=== PATIENT | male | born 1950 | race Caucasian/White ===

== ENCOUNTER 2022-11-15 11:36 | Outpatient (CLI) | payer MEDICARE, MEDICAID, SELFPAY ==
--- NOTE | ~2022-11-15 | MR_ITS ---
MRI of the brain Clinical History: Gait abnormality Technique: Axial and sagittal T1-weighted images were acquired. These were followed by axial T2-weigh ismael, diffusion weighted, gradient, and FLAIR images. Findings: There is no acute infarct, intracranial hemorrhage, or mass lesion. 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 There are mild to moderate chronic microvascular ischemic ocampo es in the periventricular white matter bilaterally. Ventricles and subarachnoid spaces are unremarkable. Orbits are unremarkable. Paranasal sinuses and m astoid air cells are clear. Major intracranial flow voids are intact. Sagittal midline structures are intact. IMPRESSION: No acute abnormality seen. 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 Mild to moderate chronic microvascular ischemic changes. Reviewed, dictated and finalized at location M.
--- NOTE | ~2022-11-15 | MR_ITS ---
MRI of the lumbar spine Clinical History: Gait abnormality Technique: Axial T2-weighted images, and sagittal T1-weighted, T2-weighted, and T2 fat-sat images wer e acquired. Findings: There is no acute fracture of the lumbar spine. There is mild chronic compression deformity of L1. There is minimal grade 1 retrolisthesis of L1 over L2. There is 5 mm retrolisthesis of L2 ove r L3. There is a 5 mm retrolisthesis of L3 over L4. There is 3 mm anterolisthesis of L4 over L5. Ther e is advanced degenerative disc narrowing throughout the lumbar spine. No suspicious bone marrow sign al reality seen. At L1-L2, there is disc bulge and moderate facet arthropathy. No fausto central canal stenosis. There is mild bilateral neural foraminal narrowing. At L2-L3, there is disc bulge and moderate facet arthropathy. No fausto central canal stenosis. There is severe left neural foraminal narrowing, and moderate to severe right neural foraminal narrowing. At L3-L4, there is diffuse disc bulge and severe facet arthropathy. There is moderate central canal s tenosis. There is severe bilateral neural foraminal narrowing, left worse than right. At L4-L5, there is disc bulge and severe facet arthropathy. There is mild to moderate central canal s tenosis. There is severe left neural foraminal narrowing, and moderate to severe right neural foramin al narrowing. At L5-S1, there is no disc bulge or herniation. There is moderate to advanced facet arthropathy. No c entral canal stenosis. Probable mild right neural foraminal narrowing. Paravertebral soft tissues are unremarkable. Impression: Severe degenerative spondylosis, as detailed above. 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 Mild chronic compression deformity of L1. Reviewed, dictated and finalized at location . Impression: Severe degenerative spondylosis, as detailed above. 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 Mild chronic compression deformity of L1.
== END 2022-11-15 11:37 | disposition home or self-care (01) ==
PROVIDERS: PCP Internal Medicine; Visit Provider Student in an Organized Health Care Education/Training Program
DX: R26.89 Other abnormalities of gait and mobility (principal); M47.896 Other spondylosis, lumbar region
CPT/HCPCS: 70551; 72148

== ENCOUNTER 2023-01-22 12:43 | Outpatient (CLI) | payer MEDICARE, MEDICAID, SELFPAY ==
--- NOTE | 2023-01-22 14:45 | NEURO_ITS ---
Impression: # Non-diabetic with severely swollen legs and gait dysfunction. # No motor or sensory responses could be obtained from lower extremities. # Needle/EMG exam with decreased motor unit potentials but no fibs or myotonia. # Clinical correlation recommended. Nerve Conduction Studies Anti Sensory Summary Table Stim Site NR Peak (ms) P-T Amp (?V) Site1 Site2 Delta-P (ms) Dist (cm) Srinivasan (m/s) Left Sup Fibular Anti Sensory (Ant Lat Mall) NO RESPONSE 14 cm NR 14 cm Ant Lat Mall 16.0 Right Sup Fibular Anti Sensory (Ant Lat Mall) NO RESPONSE 14 cm NR 14 cm Ant Lat Mall 16.0 Left Sural Anti Sensory (Lat Mall) NO RESPONSE Calf NR Calf Lat Mall 16.0 Right Sural Anti Sensory (Lat Mall) NO RESPONSE Calf NR Calf Lat Mall 16.0 Motor Summary Table Stim Site NR Onset (ms) O-P Amp (mV) Site1 Site2 Delta-0 (ms) Dist (cm) Srinivasan (m/s) Left Peroneal Motor (Vastus Med) NO RESPONSE Ankle NR Popit NR Right Peroneal Motor (Vastus Med) NO RESPONSE Ankle NR Popit Ankle 0.0 Popit NR Left Tibial Motor (Abd Gomez Brev) NO RESPONSE Ankle NR Knee Ankle 0.0 Knee NR Right Tibial Motor (Abd Gomez Brev) NO RESPONSE Ankle NR Knee Ankle 0.0 Knee NR F Wave Studies NR F-Lat (ms) L-R F-Lat (ms) Left Peroneal (Mrkrs) (EDB) DISPERSED RESPONSE NR Right Peroneal (Mrkrs) (EDB) 57.19 Left Tibial (Mrkrs) (Abd Hallucis) DISPERSED RESPONSE NR Right Tibial (Mrkrs) (Abd Hallucis) DISPERSED RESPONSE NR EMG Side Muscle Nerve Root Ins Act Fibs Amp Dur Recrt Comment Right AntTibialis Dp Br Fibular L4-5 Nml Nml Decr Nml Reduced Right Gastroc Tibial S1-2 Nml Nml Decr Nml Reduced Right Fibularis Long Sup Br Fibular L5-S1 Nml Nml Decr Nml Reduced Right Flex Dig Long Tibial L5-S2 Nml Nml Decr Nml Reduced Right Ext Dig Brev Dp Br Fibular L5, S1 Nml Nml Decr Nml Reduced Left AntTibialis Dp Br Fibular L4-5 Nml Nml Decr Nml Reduced Left Gastroc Tibial S1-2 Nml Nml Decr Nml Reduced Left Fibularis Long Sup Br Fibular L5-S1 Nml Nml Decr Nml Reduced Left Flex Dig Long Tibial L5-S2 Nml Nml Decr Nml Reduced Left Ext Dig Brev Dp Br Fibular L5, S1 Nml Nml Decr Nml Reduced MTDD
== END 2023-01-22 12:44 | disposition home or self-care (01) ==
PROVIDERS: PCP Internal Medicine; Visit Provider Student in an Organized Health Care Education/Training Program
DX: R26.81 Unsteadiness on feet (principal); R25.1 Tremor, unspecified
CPT/HCPCS: 95886; 95910